=== PATIENT | male | born 2000 | race Hispanic/Latino ===

== ENCOUNTER 2024-06-01 09:02 | Day surgery (SDC) | payer OTHER ==
[~2024-06-01] VITALS: Ht 175.3 cm; Wt 109.5 kg
[2024-06-01 08:28] VITALS: BP 125/78
[~2024-06-01 09:02] MED LIST: CEFAZOLIN SODIUM 2 GM/20 ML SYR IV SCH; DEXAMETHASONE SOD PHOS 4 MG/ML VIAL ONE; HYDROCODONE/ACETA 5/325 TAB PO PRN; IBLOOD GLUCOSE TEST STRIP 1 EA TEST VI PRN; IBU-200200 MG PO; KETOROLAC TROMETHAMINE 30 MG/ML VIAL ONE; LACTATED RINGER'S 1,000 ML IV SCH; LIDOCAINE HCL 1% 5 ML SDV INJ ONE; LIDOCAINE HCL 2% 5 ML SDV ONE; MIDAZOLAM HCL 2 MG/2 ML VIAL IV PRN; MIDAZOLAM HCL 2 MG/2 ML VIAL ONE; NALOXONE HCL 0.4 MG SYR IV PRN; OMEPRAZOLE20 MG PO; Ropivacaine HCl 0.5% 30 ML VIAL ONE; SODIUM CHLORIDE 0.9% 20 ML IV ONE; dexmedeTOMIDine HCl 200 MCG/2 ML VIAL ONE; fentaNYL citrate 50 MCG/ML SDV IV PRN; ondansetron HCL 4 MG/2 ML VIAL IV PRN; ondansetron HCL 4 MG/2 ML VIAL ONE; propofoL 200 MG/20 ML VIAL ONE
[2024-06-01] MEDS ORDERED: fentaNYL citrate 100 MCG/2 ML VIAL ONE (09:12)
[2024-06-01] MEDS ORDERED: LACTATED RINGER'S 1,000 ML IV ONE (09:50)
[2024-06-01] MEDS ORDERED: HYDROCODON-ACE1 EA10 PO (10:11)
[2024-06-01] MEDS ORDERED: SEVOFLURANE 250 ML BTL INH ONE (10:25)
[2024-06-01 11:00] VITALS: BP 100/68
[2024-06-01 11:59] VITALS: BP 107/70
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
== END 2024-06-01 12:53 | disposition home or self-care (01) ==
LOC: DS 09:02
PROVIDERS: ATTEND Specialist
PROC: 0PSP34Z Reposition Right Metacarpal with Internal Fixation Device, Percutaneous Approach (ICD-10-PCS; principal; 2024-06-01 10:00)
DX: S62.306A Unspecified fracture of fifth metacarpal bone, right hand, initial encounter for closed fracture (principal); S62.304A Unspecified fracture of fourth metacarpal bone, right hand, initial encounter for closed fracture; W22.8XXA Striking against or struck by other objects, initial encounter
CPT/HCPCS: 01820; 64417; 73120; J0690; J1100; J1885; J2003; J2250; J2405; J2704; J2795; J3010; J7121